=== PATIENT | male | born 2000 | race Caucasian/White ===

== ENCOUNTER 2020-08-19 12:04 | Emergency (ER) | payer MEDICARE, MEDICAID, SELFPAY ==
[2020-08-19 12:18] VITALS: BP 104/61; PULSE 60; RESP 18; TEMP 36.9; O2SAT 100
[2020-08-19 12:29] VITALS: BP 104/61; PULSE 60; RESP 18; TEMP 36.9; O2SAT 100
--- NOTE | 2020-08-19 12:45 | ED.SKABFB ---
HPI - Skin/Abscess/Foreign Bdy General Chief complaint: Skin/Abscess/Foreign Body Stated complaint: Sunburn and swelling on right Arm Source: patient and RN notes reviewed Limitations: no limitations History of Present Illness HPI narrative: The patient, on 'disability ' for prior history of psychological disorder, presents with sunburn. Patient states he has a couple day history of sunburn on exposed surfaces body after he went tubing. He complains of mild pain and widespread redness on his trunk and shins, anteriorly. Some of burn has started to blister on his right shoulder. No fever, discharge, streaking Related Data Allergies Allergy/AdvReac Type Severity Reaction Status Date / Time No Known Allergies Allergy Verified 08/19/20 12:29 Review of Systems Review of Systems: Narrative: General/Constitutional: No weight loss,fever Eyes: N0: Redness,discharge Ears/Nose/Throat: No: Epistaxis,ear discharge Respiratory: Denies: Hemoptysis Gastrointestinal: No Vomiting, Bleeding-rectal Skin: No Lumps, REPORTS eruption Neurologic: No Focal Weakness,Sz Hematologic: Denies: Petechiae/Purpura Psychiatric: No: Suicida ideationl All Other Systems: Reviewed and Negative PMFSH Comments At time of signature, agree with nursing past medical, surgical, social and family history. There is no relevant family history pertinent to the presenting complaint Exam Narrative: Exam Narrative: General Appearance: Well appearing, No distress Skin: Warm, Dry ; second-degree burn of the right shoulder involving about 4 palm/4% BSA with widespread surrounding first-degree burn of the entire anterior chest, and shins. EYE: PERRLA, Conjunctiva clear Ears: External ear normal Nose: Normal nose Mouth/Throat: Normal appearing, Normal lips Neck: Supple Respiratory: Airway patent, No respiratory distress Musculoskeletal: Full ROM Neurological: A&O x3, CN II-X intact Psychiatric: Normal mood, Normal affect Course Vital Signs Vital signs: Vital Signs Temperature 98.5 F 08/19/20 12:18 Pulse Rate 60 08/19/20 12:18 Respiratory Rate 18 08/19/20 12:18 Blood Pressure 104/61 08/19/20 12:18 Pulse Oximetry 100 08/19/20 12:18 Temperature 98.5 F 08/19/20 12:29 Pulse Rate 60 08/19/20 12:29 Respiratory Rate 18 08/19/20 12:29 Blood Pressure 104/61 08/19/20 12:29 Pulse Oximetry 100 08/19/20 12:29 Discharge Plan Discharge Clinical Impression: Sunburn Nontraumatic shoulder pain Qualifiers: Laterality: right Qualified Code(s): M25.511 - Pain in right shoulder Patient Disposition: Home, Self-Care Condition: Stable Instructions: Sunburn (ED) Prescriptions: New tramadol 50 mg tablet 50 mg PO Q6H PRN (Reason: pain) Qty: 14 RF: 0 Follow-up/Referrals: PHYSICIAN,[facility] [Primary Care Provider] - Stand Alone Forms: Work/School Release IP
== END 2020-08-19 12:50 | disposition home or self-care (01) ==
PROVIDERS: Emergency Provider Emergency Medicine
DX: L55.1 Sunburn of second degree (principal); L55.0 Sunburn of first degree; M25.511 Pain in right shoulder
CPT/HCPCS: 99213; G0463